=== PATIENT | female | born 1975 | race African-American/Black ===

== ENCOUNTER → 2018-02-13 | Outpatient (CLI) | payer BC ==
--- NOTE | 2018-02-13 15:20 | Diagnostic Imaging Report ---
PROCEDURE:US LIVER COMPARISON:[facility], , US LIVER, 08/19/2017, 9:03. INDICATIONS:CHRONIC HEPATITIS TECHNIQUE: Riggs-scale and color doppler transverse and longitudinal images of the right upper quadrant of the abdomen were obtained. FINDINGS: Liver: 13.2 cm in right mid-clavicular line. Normal echogenicity. No masses. Main portal vein: 0.9 cm, hepatopetal flow Gallbladder: No stones, sludge, wall thickening, or pericholecystic fluid. Common Bile Duct: 0.3 cm Sonographic Burciaga's sign: Negative Right kidney: 11.0 cm. Normal echogenicity. No solid masses or hydronephrosis. Pancreas: The visualized portions are unremarkable. Inferior vena cava: Patent Aorta: Within normal limits Ascites: None in the right upper quadrant of the abdomen. CONCLUSION: 1. Unremarkable right upper quadrant ultrasound. 2. No focal hepatic mass is identified Duran Batres M.D. Dictated by: Duran Batres M.D. on 02/13/2018 at 15:21 Electronically approved by: Duran Batres M.D. on 02/13/2018 at 15:21
== END ==
LOC: US 14:30
PROVIDERS: ATTEND Internal Medicine Gastroenterology
DX: K73.9 Chronic hepatitis, unspecified (principal)
CPT/HCPCS: 76705

== ENCOUNTER → 2023-07-30 | Outpatient (REF) | payer BC | LOC: US 08:52 | PROVIDERS: ATTEND Internal Medicine Gastroenterology | DX: B18.1 Chronic viral hepatitis B without delta-agent (principal) | CPT/HCPCS: 76705 ==

== ENCOUNTER → 2024-05-28 | Outpatient (REF) | payer BC | LOC: US 08:15 | PROVIDERS: ATTEND Nurse Practitioner | DX: K29.60 Other gastritis without bleeding (principal); B18.1 Chronic viral hepatitis B without delta-agent | CPT/HCPCS: 76705 ==

== ENCOUNTER → 2024-12-02 | Outpatient (REF) | payer BC | LOC: US 09:09 | PROVIDERS: ATTEND Internal Medicine Gastroenterology | DX: K29.60 Other gastritis without bleeding (principal); B18.1 Chronic viral hepatitis B without delta-agent | CPT/HCPCS: 76700 ==